=== PATIENT | male | born 1985 | race Caucasian/White ===

== ENCOUNTER 2022-04-29 15:58 | Emergency (ER) | payer OTHER ==
[~2022-04-29] VITALS: Ht 162.6 cm; Wt 92.5 kg
[2022-04-29 16:08] VITALS: BP 132/85
--- NOTE | 2022-04-29 16:45 | NUR ---
36/M PRESENTS TO ED WITH C/O SORE THROAT X1 WEEK, REPORTS SON WAS SICK WITH COLD SYMPTOMS LAST WEEK. DENIES COUGH, FEVERS, CHILLS, DENIES TAKING MEDICATION FOR SYMPTOMS.
[2022-04-29] MEDS ORDERED: IBUP-2213 PO (16:50)
[2022-04-29] MEDS ORDERED: BENZ-300 PO (16:50)
[2022-04-29 17:01] VITALS: BP 136/86
--- NOTE | 2022-04-29 17:01 | NUR ---
Patient discharged with v/s stable. Written and verbal after care instructions given. Patient alert, oriented and verbalized understanding of instructions. Ambulatory with steady gait. All questions addressed prior to discharge. ID band removed. Patient advised to follow up with PMD. Rx of Ibuprofen and Cepacol Sire Throat Lozenges given. Opportunity to ask questions provided and answered.
== END 2022-04-29 17:01 | disposition home or self-care (01) ==
LOC: MED 15:58
DX: B34.9 Viral infection, unspecified (principal); J02.9 Acute pharyngitis, unspecified; R05.9 Cough, unspecified; J34.89 Other specified disorders of nose and nasal sinuses; Z88.0 Allergy status to penicillin; Z79.899 Other long term (current) drug therapy
CPT/HCPCS: 99282